=== PATIENT | male | born 1970 ===

== ENCOUNTER 2018-11-30 05:15 | Emergency (ER) | payer OTHER ==
[~2018-11-30] VITALS: Ht 172.7 cm; Wt 90.7 kg
[~2018-11-30 05:15] MED LIST: ORPH100T PO
== END 2018-11-30 14:15 | disposition home or self-care (01) ==
LOC: ER 05:15
DX: H81.13 Benign paroxysmal vertigo, bilateral (principal); R42 Dizziness and giddiness

== ENCOUNTER 2019-04-04 18:08 | Emergency (ER) | payer OTHER ==
[~2019-04-04] VITALS: Ht 172.7 cm; Wt 93.0 kg
[2019-04-04] MEDS ORDERED: OSEL75CA PO (21:56)
[2019-04-04] MEDS ORDERED: TYLENOL EXTRA500 MG PO (22:36)
== END 2019-04-04 22:51 | disposition home or self-care (01) ==
LOC: ER 18:08
DX: J11.1 Influenza due to unidentified influenza virus with other respiratory manifestations (principal); R50.9 Fever, unspecified

== ENCOUNTER 2021-06-24 10:19 | Emergency (ER) | payer OTHER ==
[~2021-06-24] VITALS: Ht 172.7 cm; Wt 93.9 kg
[~2021-06-24 10:19] MED LIST changes: +OSEL75CA PO; +TYLENOL EXTRA500 MG PO
[2021-06-24] MEDS ORDERED: NORFLEX100MG PO (14:44)
[2021-06-24] MEDS ORDERED: KETO10TA2 PO (14:44)
== END 2021-06-24 14:58 | disposition home or self-care (01) ==
LOC: ER 10:19
DX: M54.59 Other low back pain (principal)